=== PATIENT | female | born 1980 | race Caucasian/White ===

== ENCOUNTER 2023-02-14 18:03 | Emergency (ER) | payer OTHER ==
[~2023-02-14] VITALS: Ht 162.6 cm; Wt 86.2 kg
[2023-02-14 18:55] VITALS: BP 145/81; PULSE 107; RESP 18; TEMP 98.3; O2SAT 97
[2023-02-14] MEDS ORDERED: LORazepam 1 MG TAB PO ONE (19:30)
[2023-02-14 20:27] LABS: BASOPHILS % (AUTO) 0.5 % (0.0-2.0); EOSINOPHILS # (AUTO) 0.2 K/uL (0-0.4); EOSINOPHILS % (AUTO) 3.3 % (0.0-4.0); HEMOGLOBIN 13.7 g/dL (12.0-16.0); LYMPHOCYTES # (AUTO) 1.5 K/uL (2.5-16.5); LYMPHOCYTES % (AUTO) 20.1 % (20.5-51.1); MEAN CORPUSCULAR HEMOGLOBIN 33 pg (27-31); MEAN CORPUSCULAR HGB CONC 35 g/dL (33-37); MEAN CORPUSCULAR VOLUME 94.7 fL (80-94); MONOCYTES # (AUTO) 0.4 K/uL (0.8-1.0); MONOCYTES % (AUTO) 5.3 % (1.7-9.3); NEUTROPHILS # (AUTO) 5.1 K/uL (1.8-7.7); NEUTROPHILS % (AUTO) 70.8 % (42.2-75.2); PLATELET COUNT (AUTO) 239 K/uL (140-450); RED BLOOD CELL COUNT(AUTO) 4.12 MIL/uL (4.20-5.40); RED CELL DISTRIBUTION WIDTH 13.7 % (11.6-13.7); WHITE BLOOD COUNT (AUTO) 7.2 K/uL (4.8-10.8)
[2023-02-14 20:58] LABS: ALANINE AMINOTRANSFERASE 86 U/L (12-78); ALBUMIN 4.1 g/dL (3.4-5.0); ALKALINE PHOSPHATASE 93 U/L (50-136); ANION GAP 13.1 (8-16); ASPARTATE AMINOTRANSFERASE 67 U/L (15-37); CALCIUM 9.2 mg/dL (8.5-10.1); CARBON DIOXIDE 27.2 mmol/L (21-32); CHLORIDE 101 mmol/L (98-107); CREATININE 0.8 mg/dL (0.6-1.3); GFR ARICAN-AMERICAN 102 mL/min (>90); GFR NON ARICAN-AMERICAN 84 mL/min (>90); GLUCOSE 103 mg/dL (74-106); POTASSIUM 3.3 mmol/L (3.5-5.1); SODIUM SERUM 138 mmol/L (136-145); THYROID STIMULATING HORMONE 1.69 uIU/mL (0.34-3.74); TOTAL BILIRUBIN 0.5 mg/dL (0.0-1.0); TOTAL PROTEIN, SERUM 8.5 g/dL (6.4-8.2); UREA NITROGEN, BLOOD 7 mg/dL (7-18)
[2023-02-14 21:00] VITALS: O2SAT 97
== END 2023-02-14 21:20 | disposition home or self-care (01) ==
LOC: MED 18:03
DX: F41.9 Anxiety disorder, unspecified (principal); F32.9 Major depressive disorder, single episode, unspecified; I10 Essential (primary) hypertension; Z88.0 Allergy status to penicillin; Z88.1 Allergy status to other antibiotic agents; Z88.2 Allergy status to sulfonamides; Z88.8 Allergy status to other drugs, medicaments and biological substances
CPT/HCPCS: 36415; 71045; 80053; 81025; 84443; 84484; 85025; 85379; 93005; 99285

== ENCOUNTER 2023-09-21 16:55 | Emergency (ER) | payer MEDICAID, OTHER ==
[~2023-09-21] VITALS: Ht 162.6 cm; Wt 87.7 kg
[2023-09-21 16:58] VITALS: BP 143/88; PULSE 103; RESP 20; TEMP 98.3; O2SAT 99
[2023-09-21] MEDS: LORazepam 1 MG TAB PO STA (17:47)
[2023-09-21 18:02] VITALS: BP 131/81; PULSE 104; RESP 16
[2023-09-21] MEDS ORDERED: LORA-478 PO (18:21)
[2023-09-21 18:30] VITALS: O2SAT 98
== END 2023-09-21 18:30 | disposition home or self-care (01) ==
LOC: MED 16:55
DX: F41.0 Panic disorder [episodic paroxysmal anxiety] (principal); I10 Essential (primary) hypertension; Z88.0 Allergy status to penicillin; Z88.8 Allergy status to other drugs, medicaments and biological substances; Z79.899 Other long term (current) drug therapy; Z88.2 Allergy status to sulfonamides
CPT/HCPCS: 81025; 99283

== ENCOUNTER 2023-10-02 20:25 | Emergency (ER) | payer MEDICAID ==
[~2023-10-02] VITALS: Ht 162.6 cm; Wt 81.2 kg
[~2023-10-02 20:25] MED LIST: LORA-478 PO
[2023-10-02 20:29] VITALS: BP 145/96; PULSE 62; TEMP 97.8
[2023-10-02 21:00] VITALS: BP 145/96; PULSE 62; TEMP 97.8
[2023-10-02] MEDS: LORazepam 1 MG TAB PO ONE (21:10)
== END 2023-10-02 21:20 | disposition home or self-care (01) ==
LOC: MED 20:25
DX: F41.9 Anxiety disorder, unspecified (principal); F43.9 Reaction to severe stress, unspecified; I10 Essential (primary) hypertension; Z88.0 Allergy status to penicillin; Z88.8 Allergy status to other drugs, medicaments and biological substances; Z88.1 Allergy status to other antibiotic agents; Z88.2 Allergy status to sulfonamides
CPT/HCPCS: 99283

== ENCOUNTER 2023-10-08 12:13 | Emergency (ER) | payer MEDICAID ==
[~2023-10-08] VITALS: Ht 162.6 cm; Wt 81.6 kg
[2023-10-08 12:15] VITALS: BP 159/98; PULSE 80; RESP 17; TEMP 98.1; O2SAT 98
[2023-10-08] MEDS: LORazepam 1 MG TAB PO ONE (13:26)
== END 2023-10-08 13:28 | disposition home or self-care (01) ==
LOC: MED 12:13
DX: F41.9 Anxiety disorder, unspecified (principal); F13.20 Sedative, hypnotic or anxiolytic dependence, uncomplicated; I10 Essential (primary) hypertension; Z88.0 Allergy status to penicillin; Z88.2 Allergy status to sulfonamides; Z88.1 Allergy status to other antibiotic agents; Z88.6 Allergy status to analgesic agent
CPT/HCPCS: 99283

== ENCOUNTER 2023-10-14 12:56 | Emergency (ER) | payer MEDICAID ==
[~2023-10-14] VITALS: Ht 162.6 cm; Wt 81.6 kg
[2023-10-14 13:01] VITALS: BP 147/89; PULSE 81; RESP 18; TEMP 97.2; O2SAT 98
[2023-10-14] MEDS ORDERED: ONDA-188 SL (15:20)
[2023-10-14] MEDS: LORazepam 1 MG TAB PO ONE (15:32)
[2023-10-14] MEDS: ONDANSETRON 4 MG ODT PO ONE (15:33)
[2023-10-14 16:00] VITALS: BP 135/92; PULSE 83; RESP 20; O2SAT 99
== END 2023-10-14 16:00 | disposition home or self-care (01) ==
LOC: MED 12:56
DX: F41.9 Anxiety disorder, unspecified (principal); F43.9 Reaction to severe stress, unspecified; R11.0 Nausea; I10 Essential (primary) hypertension; Z79.899 Other long term (current) drug therapy; Z88.0 Allergy status to penicillin; Z88.1 Allergy status to other antibiotic agents; Z88.6 Allergy status to analgesic agent; Z88.2 Allergy status to sulfonamides; Z88.8 Allergy status to other drugs, medicaments and biological substances
CPT/HCPCS: 99283; Q0162

== ENCOUNTER 2023-10-21 12:20 | Emergency (ER) | payer MEDICAID ==
[~2023-10-21] VITALS: Ht 162.6 cm; Wt 77.1 kg
[~2023-10-21 12:20] MED LIST changes: +ONDA-188 SL
[2023-10-21 12:41] VITALS: BP 109/71; PULSE 88; RESP 20; TEMP 98.3; O2SAT 99
[2023-10-21 14:30] VITALS: BP 111/73; PULSE 87; RESP 20; TEMP 98.2; O2SAT 99
[2023-10-21] MEDS: ONDANSETRON 4 MG ODT PO ONE (14:52)
[2023-10-21] MEDS: LORazepam 1 MG TAB PO ONE (15:07)
[2023-10-21] MEDS ORDERED: ATA25 PO (15:45)
== END 2023-10-21 15:54 | disposition home or self-care (01) ==
LOC: MED 12:20
DX: F41.0 Panic disorder [episodic paroxysmal anxiety] (principal); F43.9 Reaction to severe stress, unspecified; R11.0 Nausea; F41.9 Anxiety disorder, unspecified; Z79.1 Long term (current) use of non-steroidal anti-inflammatories (NSAID); Z79.899 Other long term (current) drug therapy; Z88.0 Allergy status to penicillin; Z88.2 Allergy status to sulfonamides; Z88.5 Allergy status to narcotic agent
CPT/HCPCS: 99283; Q0162

== ENCOUNTER 2023-11-02 12:36 | Emergency (ER) | payer MEDICAID ==
[~2023-11-02] VITALS: Ht 157.5 cm; Wt 88.5 kg
[~2023-11-02 12:36] MED LIST changes: +ATA25 PO
[2023-11-02 13:00] VITALS: BP 182/97; PULSE 108; RESP 20; TEMP 97.2; O2SAT 98
[2023-11-02] MEDS: ONDANSETRON 4 MG ODT PO ONE (13:29)
[2023-11-02] MEDS: LORazepam 1 MG TAB PO ONE (13:31)
[2023-11-02] MEDS ORDERED: ATA25 PO (14:28)
[2023-11-02] MEDS ORDERED: LORA-476 PO (14:54)
[2023-11-02 15:41] VITALS: BP 142/97; PULSE 108; RESP 20; TEMP 97.2; O2SAT 98
== END 2023-11-02 15:39 | disposition home or self-care (01) ==
LOC: MED 12:36
DX: F41.9 Anxiety disorder, unspecified (principal); F43.9 Reaction to severe stress, unspecified; I10 Essential (primary) hypertension; Z88.0 Allergy status to penicillin; Z88.2 Allergy status to sulfonamides; Z79.1 Long term (current) use of non-steroidal anti-inflammatories (NSAID); Z88.5 Allergy status to narcotic agent; Z88.8 Allergy status to other drugs, medicaments and biological substances; Z79.899 Other long term (current) drug therapy
CPT/HCPCS: 81025; 99291; Q0162

== ENCOUNTER 2023-12-22 10:30 | Emergency (ER) | payer MEDICAID ==
[~2023-12-22] VITALS: Ht 162.6 cm; Wt 89.5 kg
[~2023-12-22 10:30] MED LIST changes: +LORA-476 PO
[2023-12-22 10:35] VITALS: BP 149/108; PULSE 74; RESP 18; TEMP 98.3; O2SAT 98
[2023-12-22 10:50] VITALS: O2SAT 98
[2023-12-22] MEDS: LORazepam 1 MG TAB PO ONE (11:45)
[2023-12-22] MEDS ORDERED: LORA-476 PO (11:47)
== END 2023-12-22 12:08 | disposition home or self-care (01) ==
LOC: MED 10:30
DX: F41.1 Generalized anxiety disorder (principal); R11.0 Nausea; I10 Essential (primary) hypertension; Z79.899 Other long term (current) drug therapy; Z88.0 Allergy status to penicillin; Z88.2 Allergy status to sulfonamides; Z88.1 Allergy status to other antibiotic agents; Z88.8 Allergy status to other drugs, medicaments and biological substances
CPT/HCPCS: 99283

== ENCOUNTER 2024-01-04 14:05 | Emergency (ER) | payer MEDICAID ==
[~2024-01-04] VITALS: Ht 162.6 cm; Wt 81.2 kg
[2024-01-04 14:10] VITALS: BP 136/92; PULSE 74; RESP 16; TEMP 98.1; O2SAT 98
[2024-01-04] MEDS: ONDANSETRON 4 MG ODT PO ONE (15:10)
[2024-01-04] MEDS: LORazepam 1 MG TAB PO ONE (15:10)
[2024-01-04 15:12] VITALS: BP 136/92; PULSE 74; RESP 16; TEMP 98.1; O2SAT 98
== END 2024-01-04 15:12 | disposition home or self-care (01) ==
LOC: MED 14:05
DX: F13.20 Sedative, hypnotic or anxiolytic dependence, uncomplicated (principal); I10 Essential (primary) hypertension; Z79.899 Other long term (current) drug therapy; Z79.1 Long term (current) use of non-steroidal anti-inflammatories (NSAID); Z88.2 Allergy status to sulfonamides; Z88.0 Allergy status to penicillin; Z88.8 Allergy status to other drugs, medicaments and biological substances
CPT/HCPCS: 99283; Q0162

== ENCOUNTER 2024-01-05 09:26 | Emergency (ER) | payer MEDICAID ==
[~2024-01-05] VITALS: Ht 162.6 cm; Wt 91.3 kg
[2024-01-05 09:27] VITALS: BP 160/104; PULSE 91; RESP 17; TEMP 97.9; O2SAT 98
[2024-01-05 11:00] LABS: BASOPHILS % (AUTO) 0.7 % (0.0-2.0); EOSINOPHILS # (AUTO) 0.4 K/uL (0-0.4); EOSINOPHILS % (AUTO) 5.5 % (0.0-4.0); HEMATOCRIT 38.7 % (36-48); HEMOGLOBIN 13.4 g/dL (12.0-16.0); LYMPHOCYTES # (AUTO) 1.3 K/uL (2.5-16.5); LYMPHOCYTES % (AUTO) 19.1 % (20.5-51.1); MEAN CORPUSCULAR HEMOGLOBIN 33 pg (27-31); MEAN CORPUSCULAR HGB CONC 35 g/dL (33-37); MEAN CORPUSCULAR VOLUME 96.6 fL (80-94); MONOCYTES # (AUTO) 0.4 K/uL (0.8-1.0); MONOCYTES % (AUTO) 5.8 % (1.7-9.3); NEUTROPHILS # (AUTO) 4.6 K/uL (1.8-7.7); NEUTROPHILS % (AUTO) 68.9 % (42.2-75.2); PLATELET COUNT (AUTO) 236 K/uL (140-450); RED BLOOD CELL COUNT(AUTO) 4.01 MIL/uL (4.20-5.40); WHITE BLOOD COUNT (AUTO) 6.7 K/uL (4.8-10.8)
[2024-01-05] MEDS: LORazepam 1 MG TAB PO ONE ×2 (11:10→12:11)
[2024-01-05] MEDS: ONDANSETRON 4 MG TAB PO ONE (11:10)
[2024-01-05 11:20] LABS: ALANINE AMINOTRANSFERASE 52 U/L (12-78); ALBUMIN 3.4 g/dL (3.4-5.0); ALKALINE PHOSPHATASE 81 U/L (50-136); ANION GAP 12.4 (8-16); ASPARTATE AMINOTRANSFERASE 27 U/L (15-37); CALCIUM 8.8 mg/dL (8.5-10.1); CARBON DIOXIDE 28.3 mmol/L (21-32); CHLORIDE 102 mmol/L (98-107); CREATININE 0.7 mg/dL (0.6-1.3); GFR ARICAN-AMERICAN 118 mL/min (>90); GFR NON ARICAN-AMERICAN 98 mL/min (>90); GLUCOSE 111 mg/dL (74-106); POTASSIUM 3.7 mmol/L (3.5-5.1); SODIUM SERUM 139 mmol/L (136-145); TOTAL BILIRUBIN 0.4 mg/dL (0.0-1.0); TOTAL PROTEIN, SERUM 7.8 g/dL (6.4-8.2); UREA NITROGEN, BLOOD 7 mg/dL (7-18)
== END 2024-01-05 12:30 | disposition home or self-care (01) ==
LOC: MED 09:26
DX: F41.9 Anxiety disorder, unspecified (principal); F41.0 Panic disorder [episodic paroxysmal anxiety]; R20.0 Anesthesia of skin; R20.2 Paresthesia of skin; I10 Essential (primary) hypertension; Z79.899 Other long term (current) drug therapy; Z88.0 Allergy status to penicillin; Z88.2 Allergy status to sulfonamides; Z88.8 Allergy status to other drugs, medicaments and biological substances
CPT/HCPCS: 36415; 80053; 84484; 85025; 93005; 99284; Q0162

== ENCOUNTER 2024-02-16 14:33 | Emergency (ER) | payer MEDICAID ==
[~2024-02-16] VITALS: Ht 162.6 cm; Wt 81.6 kg
[2024-02-16 14:44] VITALS: BP 139/85; PULSE 98; RESP 17; TEMP 97.8; O2SAT 98
[2024-02-16 16:15] VITALS: O2SAT 98
[2024-02-16] MEDS: LORazepam 1 MG TAB PO ONE (16:56)
[2024-02-16] MEDS ORDERED: LORA-476 PO (17:02)
== END 2024-02-16 17:20 | disposition home or self-care (01) ==
LOC: MED 14:33
DX: F41.9 Anxiety disorder, unspecified (principal); F41.0 Panic disorder [episodic paroxysmal anxiety]; R03.0 Elevated blood-pressure reading, without diagnosis of hypertension; Z79.899 Other long term (current) drug therapy; Z88.0 Allergy status to penicillin; Z88.2 Allergy status to sulfonamides; Z88.8 Allergy status to other drugs, medicaments and biological substances
CPT/HCPCS: 81025; 99283